=== PATIENT | male | born 1940 | race Caucasian/White ===

== ENCOUNTER 2017-04-20 06:11 | Day surgery (SDC) ==
[2017-04-20] MEDS ORDERED: LIDOCAINE 1% 20 ML MDV ID ONE (07:20)
[2017-04-20] MEDS ORDERED: LIDOCAINE 1% 20 ML MDV ID STA (07:57)
[2017-04-20] MEDS ORDERED: DIPRIVAN 20 ML VIAL IVP ONE (08:00)
[2017-04-20] MEDS ORDERED: VERSED ONE (08:00)
[2017-04-20 09:00] VITALS: BP 132/81; TEMP 97.6
--- NOTE | 2017-04-21 07:18 | OP ---
PROCEDURE: COLONOSCOPY TO THE CECUM WITH SNARE POLYPECTOMY AND BIOPSY. ENDOSCOPIST: Herman WILLINGHAM M.D. INDICATION: HISTORY OF ULCERATIVE COLITIS INSTRUMENT: [id number]. MEDICATION: PER ANESTHESIA. PROCEDURE: The patient was positioned for colonoscopy. The digital rectal exam was negative. The colonoscope was inserted through the anus and advanced under direct visualization to the level of the cecum. The cecum was identified using the ileocecal valve and the appendiceal orifice as landmarks. The scope was slowly withdrawn through an adequately prepped colon. On insertion we found a small polyp in the 60cm range removed using snare cauter. The tissue was lost. On withdraw we found a small polyp at 40cm removed using snare cautery. Random biopsies were obtain to the cecum, ascending colon, 80cm, 70, 60, 50, 40 , 30, 20cm and the rectum. There was no evidence for active colitis at this time. The retroflex exam was only notable for small hemorrhoids. The patient tolerated the procedure without immediate complication. Withdraw time 16 minutes 49 seconds. PLAN: 1. Review pathology with anticipated repeat colonoscopy in 2 years CC: Dr. Rayne [id number]
== END 2017-04-20 09:46 | disposition home or self-care (01) ==
LOC: SURG 06:11
PROVIDERS: ATTEND Internal Medicine Gastroenterology
DX: Z87.19 Personal history of other diseases of the digestive system (principal); D12.7 Benign neoplasm of rectosigmoid junction; D12.2 Benign neoplasm of ascending colon; D12.0 Benign neoplasm of cecum; D12.4 Benign neoplasm of descending colon; K63.5 Polyp of colon; D12.5 Benign neoplasm of sigmoid colon; K64.9 Unspecified hemorrhoids